=== PATIENT | female | born 1980 | race Caucasian/White ===

== ENCOUNTER 2020-10-21 19:22 | Emergency (ER) | payer BC, SELFPAY ==
--- NOTE | 2020-10-21 19:36 | ED.FEMALEGU ---
HPI - Female Genitourinary General Chief complaint: Urogenital-Female Stated complaint: urinating Blood Time Seen by Provider: 10/21/20 19:36 Source: patient and RN notes reviewed Mode of arrival: ambulatory Limitations: no limitations History of Present Illness HPI Narrative: 40 year old female with complaints of urinating blood, pressure in the bladder, urinary frequency for the past 2 days. Patient denies any fevers chills or sweats, denies any abdominal pain associated with nausea or vomiting. Patient denies any flank pain or any burning with urination or any episodes of incontinency. Patient states that she has never had a urinary tract infection in the past, has not taken any AZO OTC for her symptoms. MD elicited complaint: dysuria, UTI and other (pelvic pressure) Onset (ago): day(s) (2) Location of symptoms: suprapubic Severity: moderate Female Urogenital Radiation: Non-Radiating Severity scale (1-10): 4 Quality of pain: dull Vaginal discharge: none Vaginal bleeding: none Urinary symptoms: Dysuria and Hematuria Relieving factors: none Treatment prior to arrival: none Sexual activity: Yes Patient : No Related Data Home Medications Medication Instructions Recorded Confirmed amitriptyline 25 mg PO DIRECTED 10/21/20 10/21/20 citalopram 20 mg PO DIRECTED 10/21/20 10/21/20 elagolix [Orilissa] 150 mg PO DIRECTED 10/21/20 10/21/20 metoprolol tartrate 25 mg PO DIRECTED 10/21/20 10/21/20 topiramate 50 mg PO DAILY 10/21/20 10/21/20 Allergies Allergy/AdvReac Type Severity Reaction Status Date / Time No Known Allergies Allergy Verified 10/21/20 19:33 Review of Systems Review of Systems: Narrative: CONSTITUTIONAL: Denies fever, chills, or sweats. EYES: Denies visual changes, redness, or discharge. ENT: Denies rhinorrhea, congestion, sore throat, or otalgia. CARDIOVASCULAR: Denies chest pain, palpitations, or edema. RESPIRATORY: Denies cough or dyspnea. GASTROINTESTINAL: Denies abdominal pain, nausea, vomiting, or diarrhea. GENITOURINARY: Positive dysuria or hematuria. SKIN: Denies rash or itching. MUSCULOSKELETAL: Denies back pain, joint pain, or myalgia. NEUROLOGIC: Denies headache, numbness, or weakness. PSYCHIATRIC: History of anxiety or depression. All systems reviewed & are unremarkable except as noted in HPI and below PMFSH Past Medical History Medical History (Updated 10/21/20 @ 20:05 by Zuleyma Leach NP) Brain aneurysm CVA (cerebral vascular accident) Hypertension Migraines Surgical History Surgical History (Updated 10/21/20 @ 19:45 by Zuleyma Leach NP) H/O section Family History Family History (Updated 10/21/20 @ 20:02 by Zuleyma Leach NP) Mother Hypertension Social History Social History (Updated 10/21/20 @ 20:03 by Zuleyma Leach NP) Smoking status: Never smoker Alcohol intake: current Alcohol use details: social Substance use: never Living arrangements: with family Gender identity (if verbalized by the patient): Female Comments At time of signature, agree with nursing past medical, surgical, social and family history. There is no relevant family history pertinent to the presenting complaint Exam Narrative: Exam Narrative: GENERAL: Well-appearing, well-nourished, and in no acute distress. HEAD: Normocephalic, atraumatic. EYES: PERRLA and EOMI. ENT: Nares clear, no rhinorrhea or epistaxis. Mucous membranes moist. NECK: Supple.no lymphadenopathy CHEST: Clear to auscultation. No respiratory distress.SAO2 100% on room air HEART: Regular rate and rhythm. No murmur heard. Normal peripheral pulses. ABDOMEN: Soft, tender suprapubic, nondistended, normal active bowel sounds. EXTREMITIES: Normal range of motion. No edema. SKIN: Warm, dry, no rash. NEURO: No focal deficits. Alert and oriented x3. MDM - Female Genitourinary Differential Diagnosis Differential diagnosis: Likely urinary tract infection, cervicitis, vaginitis an
[2020-10-21 19:42] VITALS: BP 138/77; PULSE 80; RESP 16; TEMP 36.7; O2SAT 100
== END 2020-10-21 19:57 | disposition home or self-care (01) ==
PROVIDERS: Emergency Provider Registered Nurse
DX: N39.0 Urinary tract infection, site not specified (principal); I10 Essential (primary) hypertension; Z86.73 Personal history of transient ischemic attack (TIA), and cerebral infarction without residual deficits
CPT/HCPCS: 81003; 87077; 87086; 87088; 87186; 99203; G0463

== ENCOUNTER 2021-12-27 19:42 | Emergency (ER) | payer BC, SELFPAY ==
--- NOTE | 2021-12-27 19:48 | ED.URI ---
HPI - URI/Sore Throat General Chief Complaint: Upper Respiratory Infection Stated Complaint: cough Time Seen by Provider: 12/27/21 19:52 Source: patient and RN notes reviewed Mode of arrival: ambulatory Limitations: no limitations History of Present Illness HPI Narrative: 41-year-old female presents with concern for cough, runny nose. Reports headache with coughing. Reports she is taken to negative Covid test. Reports she taken [id number] cough meds without relief. She denies fever, body aches, chills, sweats. She reports her son had similar symptoms. MD elicited complaint: cough Related Data Home Medications Medication Instructions Recorded Confirmed amitriptyline 25 mg PO DIRECTED 10/21/20 12/27/21 citalopram 20 mg PO DIRECTED 10/21/20 12/27/21 metoprolol tartrate 25 mg PO DIRECTED 10/21/20 12/27/21 topiramate 50 mg PO DAILY 10/21/20 12/27/21 Allergies Allergy/AdvReac Type Severity Reaction Status Date / Time No Known Allergies Allergy Verified 12/27/21 19:44 Review of Systems Review of Systems: CONSTITUTIONAL: Denies malaise, chills, sweats, or fever. EYES: Denies visual changes, redness, or discharge. ENT: Reports rhinorrhea, congestion. Denies sinus pain, otalgia and sore throat. CARDIOVASCULAR: Denies chest pain, palpitations, or edema. RESPIRATORY: Reports persistent cough. Denies dyspnea. GASTROINTESTINAL: Denies abdominal pain, nausea, vomiting, diarrhea SKIN: Denies rash or itching. MUSCULOSKELETAL: Denies myalgia. NEUROLOGIC: Denies headache. All systems reviewed & are unremarkable except as noted in HPI and below PMFSH Past Medical History Medical History (Updated 12/27/21 @ 20:00 by Louise Avilez NP) Brain aneurysm CVA (cerebral vascular accident) Hypertension Migraines Surgical History Surgical History (Updated 10/21/20 @ 19:45 by Zuleyma Leach NP) H/O section Family History Family History (Updated 10/21/20 @ 20:02 by Zuleyma Leach NP) Mother Hypertension Social History Social History (Updated 10/21/20 @ 20:03 by Zuleyma Leach NP) Smoking status: Never smoker Alcohol intake: current Alcohol use details: social Substance use: never Gender identity (if verbalized by the patient): Female Comments At time of signature, agree with nursing past medical, surgical, social and family history. There is no relevant family history pertinent to the presenting complaint Exam Narrative: GENERAL: Well-appearing, well-nourished, and in no acute distress. HEAD: Normocephalic EYES: PERRLA, conjunctivae clear ENT: Nares clear, clear discharge. Mucous membranes moist. TM pearly anguiano with sharp light reflex bilaterally; no tragal tenderness. Oropharynx not erythematous without lesions. Tonsils not enlarged and without exudate, no drooling, no hoarseness, uvula midline. NECK: Supple. No lymphadenopathy CHEST: Barking cough noted, hoarse voice. Clear to auscultation, breath sounds equal. No wheezing, rhonchi, rales, or stridor. No respiratory distress, speaks in full sentences. HEART: Regular rate and rhythm. No murmur heard. SKIN: Warm, dry, no rash. NEURO: Alert and oriented x3. PSYCH: Normal mood and affect Course Course Emergency Course: Patient is aware of diagnosis, understands and agrees to treatment plan. Anticipatory guidance given. Patient agrees to follow-up as directed and is aware of reasons to seek care at the emergency department. Portions of this record may have been created with voice recognition software Level of Care: Express Care Visit Vital Signs Vital signs: Reviewed. MDM - URI/Sore Throat MDM Narrative Medical decision making narrative: Differential diagnosis considered: Gil virus, strep pharyngitis, allergic rhinitis, upper respiratory tract infection, sinusitis, rhinosinusitis, nasopharyngitis. viral pharyngitis, otitis media, otitis externa, pneumonia, bronchitis, viral cough syndrome, viral syndrome, and
[2021-12-27 19:50] VITALS: BP 126/62; PULSE 99; RESP 16; TEMP 37.3; O2SAT 97
== END 2021-12-27 20:05 | disposition home or self-care (01) ==
PROVIDERS: Emergency Provider Nurse Practitioner
DX: J40 Bronchitis, not specified as acute or chronic (principal); I10 Essential (primary) hypertension; Z86.73 Personal history of transient ischemic attack (TIA), and cerebral infarction without residual deficits
CPT/HCPCS: 99213; G0463

== ENCOUNTER 2022-03-02 03:47 | Emergency (ER) | payer BC, SELFPAY ==
--- NOTE | ~2022-03-02 | CT_ITS ---
EXAMINATION: CT abdomen pelvis wo con DATE: 03/02/2022 04:29 INDICATION: Right flank pain TECHNIQUE: Computed tomography (CT) of the abdomen and pelvis was performed without intravenous contr ast. Automated exposure control and iterative reconstruction technique were employed. Exam dose: 147 3.13 mGy-cm total exam DLP. COMPARISON: None. FINDINGS: The lung bases are clear of infiltrate or consolidation. Mild cardiomegaly. No pericardial or pleural effusion. There is hepatic steatosis. The liver, gallbladder, bile ducts, pancreas, pancreatic duct and spleen are otherwise unremarkable. Normal morphology of the adrenal glands. There is an approximately 2.8 x 5 x 4.7 mm calculus at the proximal right ureter with moderate right hydroureteronephrosis proximally. No other urinary tract calculus. No hydroureteronephrosis on the le ft. Status post hysterectomy. The urinary bladder is unremarkable. Normal appendix. Minimal colonic diverticulosis; no CT evidence of diverticulitis. No bowel obstructi on, bowel wall thickening, pneumatosis or intraperitoneal free air. There is an IVC filter beneath the level of the renal veins. Normal caliber of the abdominal aorta. N o intraperitoneal or retroperitoneal or pelvic mass lesion or adenopathy or ascites. Very small fat-containing umbilical hernia. Included skeletal structures are unremarkable. IMPRESSION: 2.8 x 5 mm obstructing calculus of the proximal right ureter with moderate right hydrone phrosis as a result IVC filter Normal appendix Minimal diverticulosis of the colon Hepatic steatosis Reviewed, dictated and finalized at [facility] Reviewed, dictated and finalized at [facility] IMPRESSION: 2.8 x 5 mm obstructing calculus of the proximal right ureter with moderate right hydronephrosis as a result IVC filter Normal appendix Minimal diverticulosis of the colon Hepatic steatosis
[2022-03-02 03:52] VITALS: BP 145/84; PULSE 80; RESP 16; TEMP 36.1; O2SAT 100
--- NOTE | 2022-03-02 04:15 | PC.NURSE ---
Pt to CT via stretcher at this time
[2022-03-02 04:37] LABS: Basophils Absolute Auto 0.1 K/mm3 (0.0-0.1); Basophils Percent Auto 0.7 % (0.2-1.2); Eosinophils Absolute Auto 0.3 K/mm3 (0-0.3); Eosinophils Percent Auto 2.9 % (0-4.4); Hematocrit 40.5 % (37.0-47.0); Hemoglobin 13.1 g/dL (12.0-15.0); Immature Granulocyte Absolute 0.05 K/mm3 (0.00-0.031); Immature Granulocyte Percent A 0.5 % (0-0.5); Lymphocytes Absolute Auto 2.59 K/mm3 (0.9-3.2); Lymphocytes Percent Auto 26.9 % (18.3-44.2); Mean Corpuscular HGB Conc 32.3 g/dl (32-36); Mean Corpuscular Hemoglobin 30.6 pg (26-34); Mean Corpuscular Volume 94.6 fl (80-100); Mean Platelet Volume 8.9 fl (7.4-10.4); Monocytes Absolute Auto 0.7 K/mm3 (0.1-0.6); Platelet Count Result 256 k/mm3 (150-375); Red Blood Count 4.28 M/mm3 (4.2-5.4); Red Cell Distribution Width 13.8 % (11.5-14.5); White Blood Count 9.6 K/mm3 (4.5-10.0)
[2022-03-02 04:39] LABS: Add Urine Microscopic? YES; Appearance Urine Clear (Clear); Bilirubin Urine Negative (Negative); Blood Urine 3+ (Negative); Color Urine Yellow (Yellow); Glucose Urine UA Negative (Negative); Ketones Urine Negative (Negative); Leukocyte Esterase Ur Negative LEU/UL (Negative); Nitrate Urine Negative (Negative); Protein Urine Negative (Negative); Specific Grav Ur 1.015 (1.001-1.035); Urobilinogen Urine 0.2 mg/dL (<2.0)
--- NOTE | 2022-03-02 04:42 | ED.ABDPAIN ---
HPI - Abdominal Pain General Chief Complaint: Abdominal Pain Stated Complaint: Right sided pain since yesterday Time Seen by Provider: 03/02/22 03:58 History of Present Illness HPI narrative: Patient is a 41-year-old female who presents ER with sudden onset flank pain. Right side. Radiates to the right abdomen. Associate with some nausea but no vomiting. No urinary frequency urgency or dysuria. Feels similar to kidney stone she had years ago. Reports she has had some mild discomfort over the last couple days but this is different. No alleviating factors that she can find. Symptoms woke her from sleep. Related Data Home Medications Medication Instructions Recorded Confirmed amitriptyline 25 mg tablet 25 mg PO DIRECTED 10/21/20 12/27/21 citalopram 20 mg tablet 20 mg PO DIRECTED 10/21/20 12/27/21 metoprolol tartrate 25 mg tablet 25 mg PO DIRECTED 10/21/20 12/27/21 topiramate 50 mg tablet 50 mg PO DAILY 10/21/20 12/27/21 Allergies Allergy/AdvReac Type Severity Reaction Status Date / Time No Known Allergies Allergy Verified 03/02/22 03:56 Review of Systems Review of Systems: All systems reviewed & are unremarkable except as noted in HPI and below Constitutional: Constitutional: Denies chills and Denies fever(s) Cardiovascular: Cardiovascular: Denies chest pain and Denies radiating jaw, neck or arm pain Gastrointestinal: Gastrointestinal: Reports abdominal pain, Reports nausea and Denies vomiting Genitourinary: Genitourinary: Denies hematuria, Denies nocturia, Denies dysuria and Reports flank pain PMFSH Past Medical History Medical History (Updated 03/02/22 @ 06:56 by Reagan Betancourt MD) Brain aneurysm CVA (cerebral vascular accident) History of kidney stones Hypertension Migraines Surgical History Surgical History (Updated 10/21/20 @ 19:45 by Zuleyma Leach NP) H/O section Family History Family History (Updated 10/21/20 @ 20:02 by Zuleyma Leach NP) Mother Hypertension Social History Social History (Updated 10/21/20 @ 20:03 by Zuleyma Leach NP) Smoking status: Never smoker Alcohol intake: current Alcohol use details: social Substance use: never Gender identity (if verbalized by the patient): Female Exam Narrative: GENERAL: Well-appearing, well-nourished, and in no acute distress. HEAD: Normocephalic, atraumatic. CHEST: Clear to auscultation. No respiratory distress. HEART: Regular rate and rhythm. Normal peripheral pulses. ABDOMEN: Soft, mild right upper quadrant tenderness without guarding, nondistended. No CVA tenderness. EXTREMITIES: Normal range of motion. No edema. SKIN: Warm, dry, no rash. NEURO: Alert and oriented x3. PSYCH: Normal mood and affect. Course Course Emergency Course: Patient informed of results. Discussed outpatient management. Patient feels comfortable with this. Will give second dose of morphine prior to discharge. Vital Signs Vital signs: Vital Signs Temperature 97.0 F L 03/02/22 03:52 Pulse Rate 80 03/02/22 03:52 Respiratory Rate 16 03/02/22 03:52 Blood Pressure 145/84 H 03/02/22 03:52 Pulse Oximetry 100 03/02/22 03:52 Oxygen Delivery Room Air 03/02/22 03:52 Temperature 97.0 F L 03/02/22 03:52 Pulse Rate 80 03/02/22 03:52 Respiratory Rate 16 03/02/22 03:52 Blood Pressure 145/84 H 03/02/22 03:52 Pulse Oximetry 100 03/02/22 03:52 Oxygen Delivery Room Air 03/02/22 03:52 MDM - Abdominal Pain Lab Data Result diagrams: 03/02/22 04:29 03/02/22 04:29 Labs: Lab Results 03/02/22 03/02/22 03/02/22 Range/Units 04:29 04:29 04:33 WBC 9.6 (4.5-10.0) K/mm3 RBC 4.28 (4.2-5.4) M/mm3 Hgb 13.1 (12.0-15.0) g/dL Hct 40.5 (37.0-47.0) % MCV 94.6 (80-100) fl MCH 30.6 (26-34) pg MCHC 32.3 (32-36) g/dl RDW 13.8 (11.5-14.5) % Plt Count 256 (150-375) k/mm3 MPV 8.9 (7.4-10.4) fl Immature Gran
[2022-03-02 04:45] LABS: Alanine Aminotransferase 30 U/L (6-35); Albumin Level 3.9 g/dL (3.5-5.1); Alkaline Phosphatase 89 U/L (38-126); Anion Gap 7 mmol/L (8-16); Aspartate Amino Transferase 23 U/L (14-36); Bilirubin,Total 0.2 mg/dL (0.2-1.3); Blood Urea Nitrogen 16 mg/dL (7-17); Calcium 8.2 mg/dL (8.4-10.2); Carbon Dioxide 21 mmol/L (22-30); Chloride 109 mmol/L (98-107); Estimated CRCL calculation 89 ml/min; Estimated Glomerular Filt Rate > 60; Glucose 111 mg/dL (65-110); Lipase 110 U/L (23-300); Potassium 3.4 mmol/L (3.4-5.0); Sodium 137 mmol/L (137-145)
[2022-03-02] MEDS: MORPHINE SULFATE (*CRX) 4 MG/ML INJ IV PUSH ×2 (04:58→07:16)
[2022-03-02] MEDS: ONDANSETRON INJ 4 MG/2 ML VIAL IV PUSH (04:58)
[2022-03-02 08:01] VITALS: BP 148/103; PULSE 75; RESP 16; O2SAT 98
== END 2022-03-02 08:09 | disposition home or self-care (01) ==
PROVIDERS: Emergency Provider Emergency Medicine
DX: N13.2 Hydronephrosis with renal and ureteral calculous obstruction (principal); I10 Essential (primary) hypertension; Z86.73 Personal history of transient ischemic attack (TIA), and cerebral infarction without residual deficits; Z87.442 Personal history of urinary calculi; K76.0 Fatty (change of) liver, not elsewhere classified
CPT/HCPCS: 36415; 74176; 80053; 81001; 83690; 85025; 96374; 96375; 96376; 99284; J2270; J2405

== ENCOUNTER 2022-09-20 13:30 | Emergency (ER) | payer BC, SELFPAY ==
[2022-09-20 13:52] VITALS: BP 145/89; PULSE 108; RESP 16; TEMP 37.3; O2SAT 98
--- NOTE | 2022-09-20 14:55 | ED.URI ---
HPI - URI/Sore Throat General Chief Complaint: Upper Respiratory Infection Stated Complaint: Sore Throat/Ears Irritation/Cough Time Seen by Provider: 09/20/22 14:55 Source: patient, RN notes reviewed and old records reviewed Mode of arrival: ambulatory Limitations: no limitations History of Present Illness HPI Narrative: 42-year-old female presents to the [facility] with complaints of bilateral ear pain, sore throat and cough since Tuesday, 3 days. Reports negative COVID test on Tuesday and Tuesday. Related Data Home Medications Medication Instructions Recorded Confirmed amitriptyline 25 mg tablet 25 mg PO DIRECTED 10/21/20 09/20/22 citalopram 20 mg tablet 20 mg PO DIRECTED 10/21/20 09/20/22 metoprolol tartrate 25 mg tablet 25 mg PO DIRECTED 10/21/20 09/20/22 topiramate 50 mg tablet 50 mg PO DAILY 10/21/20 09/20/22 lorazepam 0.5 mg tablet 0.5 mg PO TID 09/20/22 09/20/22 Allergies Allergy/AdvReac Type Severity Reaction Status Date / Time No Known Allergies Allergy Verified 09/20/22 13:33 Review of Systems Review of Systems: All systems reviewed & are unremarkable except as noted in HPI and below Constitutional: Constitutional: Reports no additional constitutional complaints Eyes: Eyes: Reports no additional eye complaints ENT: Reports as per HPI, Reports change in voice, Reports otalgia, Reports headache(s), Reports sinus pressure and Reports sore throat Cardiovascular: Cardiovascular: Reports no additional cardiovascular complaints, Denies chest pain and Denies dyspnea Respiratory: Respiratory: Reports no additional respiratory complaints, Denies chest congestion, Denies cough and Denies dyspnea Gastrointestinal: Gastrointestinal: Reports no additional gastrointestinal complaints, Denies abdominal pain, Denies nausea and Denies vomiting Musculoskeletal: Musculoskeletal: Reports no additional musculoskeletal complaints Integumentary/Breasts: Skin/Breast: Reports system reviewed and no additional complaints, except as docu Neurologic: Reports system reviewed and no additional complaints, except as documented Psychiatric: Psychiatric: Reports no additional psychiatric complaints Allergic/Immunologic: Allergic/Immunologic: Reports no additional allergic/immunologic complaints PMFSH Past Medical History Medical History Brain aneurysm CVA (cerebral vascular accident) History of kidney stones Hypertension Migraines Surgical History Surgical History H/O section Family History Family History Mother Hypertension Social History Social History Smoking status: Never smoker Alcohol intake: current Alcohol use details: social Substance use: never Gender identity (if verbalized by the patient): Female Comments At the time of my signature, I reviewed and agree with the nursing past medical, surgical, social, and family history. There is no relevant family history pertinent to the patient complaint. Exam Const: General: cooperative, no acute distress, well developed, alert, ill appearing acutely, uncomfortable and well nourished Nutritional Appearance: well nourished and obese Orientation/consciousness: patient oriented x3 Limitations: no limitations HENMT: Head: normal to inspection Ears: hearing grossly normal bilaterally, external ears normal, EAC's normal and TM abnormal bulging bilateral and erythematous bilateral Face/Nose/Sinus: Normal external nose present, Normal nares present, Normal nasal mucous membranes and turbinates present and normal facial exam Face and sinus: normal facial exam Mouth: Yes Normal oral and palatal mucosa present, Yes lip normal and Yes moist mucous membranes Throat: posterior oropharynx normal, uvula midline and postnasal drainage
== END 2022-09-20 15:11 | disposition home or self-care (01) ==
PROVIDERS: Emergency Provider Nurse Practitioner
DX: H66.93 Otitis media, unspecified, bilateral (principal); I10 Essential (primary) hypertension; Z86.73 Personal history of transient ischemic attack (TIA), and cerebral infarction without residual deficits
CPT/HCPCS: 87081; 87804; 87880; 99213; G0463